=== PATIENT | male | born 1970 | race Caucasian/White ===

== ENCOUNTER 2022-12-19 11:00 | Emergency (ER) | payer OTHER ==
[~2022-12-19] VITALS: Ht 190.5 cm; Wt 136.1 kg
[2022-12-19 11:02] VITALS: BP 154/81
[2022-12-19] MEDS ORDERED: IPRATROPIUM/ALBUTEROL SULFATE 3 ML SOLUTION IH PRN (11:30)
[2022-12-19] MEDS ORDERED: 0.9%NACL 1000ML 1,000 ML IV ONE ×4 (11:30→13:38)
[2022-12-19 12:03] LABS: BASOPHILS % (AUTO) 0.4 % (0.0-5.0); EOSINOPHILS % (AUTO) 0.1 % (0.0-8.0); HEMATOCRIT 47.7 % (42-54); MEAN CORPUSCULAR HEMOGLOBIN 31.2 pg (27.0-33.0); MEAN CORPUSCULAR HGB CONC 34.2 g/dL (32.0-36.0); MEAN CORPUSCULAR VOLUME 91.2 fL (79-99); MONOCYTES % (AUTO) 5.5 % (3.0-13.0); NEUTROPHILS % (AUTO) 81.7 % (40.0-77.0); PLATELET COUNT (AUTO) 238 K/uL (130-400); RED BLOOD CELL COUNT(AUTO) 5.23 MIL/uL (4.50-6.20); RED CELL DISTRIBUTION WIDTH 12.5 % (11.0-15.5); WHITE BLOOD COUNT (AUTO) 11.8 K/uL (4.8-10.8)
[2022-12-19 12:12] LABS: POTASSIUM 4.1 mmol/L (3.5-5.1)
[2022-12-19 12:16] LABS: ALBUMIN 3.7 g/dL (3.5-5.0); TOTAL PROTEIN, SERUM 7.9 g/dL (6.0-8.3)
[2022-12-19] MEDS ORDERED: IPRATROPIUM/ALBUTEROL SULFATE 3 ML SOLUTION IH ONE (12:30)
[2022-12-19] MEDS ORDERED: CEFTRIAXONE 1G VIAL IVP ONE (13:30)
[2022-12-19] MEDS ORDERED: CEFTRIAXONE 1G VIAL ONE (13:38)
[2022-12-19] MEDS ORDERED: AZIT250T PO (13:38)
== END 2022-12-19 14:45 | disposition home or self-care (01) ==
LOC: EDH 11:00
DX: J18.9 Pneumonia, unspecified organism (principal); I10 Essential (primary) hypertension; Z20.822 Contact with and (suspected) exposure to COVID-19; Z91.040 Latex allergy status; Z98.890 Other specified postprocedural states
CPT/HCPCS: 99285; 96374; 71045; 87635; 96361; 84484; 80053; 83880; 85025; 87804 ×2; 83605; 36415; 93005; 94640; C9803; J7030 ×2; J0696

== ENCOUNTER 2023-04-12 00:15 | Inpatient (IN) | payer OTHER ==
[~2023-04-12] VITALS: Ht 190.5 cm; Wt 143.3 kg
[2023-04-12] VITALS (51 sets, daily range): BP systolic 100–169; BP diastolic 44–101
[~2023-04-12 00:15] MED LIST: AZIT250T PO
[2023-04-12 00:38] LABS: BASOPHILS % (AUTO) 0.4 % (0.0-5.0); EOSINOPHILS % (AUTO) 3.8 % (0.0-8.0); HEMATOCRIT 47.2 % (42-54); MEAN CORPUSCULAR HEMOGLOBIN 31.2 pg (27.0-33.0); MEAN CORPUSCULAR HGB CONC 33.3 g/dL (32.0-36.0); MEAN CORPUSCULAR VOLUME 93.8 fL (79-99); MONOCYTES % (AUTO) 10.4 % (3.0-13.0); NEUTROPHILS % (AUTO) 52.1 % (40.0-77.0); PLATELET COUNT (AUTO) 166 K/uL (130-400); RED BLOOD CELL COUNT(AUTO) 5.03 MIL/uL (4.50-6.20); WHITE BLOOD COUNT (AUTO) 7.8 K/uL (4.8-10.8)
[2023-04-12 00:50] LABS: INR 0.97 (0.85-1.15); PROTHROMBIN TIME 11.3 SEC (9.6-11.6)
[2023-04-12] MEDS ORDERED: ALTEPLASE 100MG 1 VIAL IVP STA (00:50)
[2023-04-12 00:52] LABS: PARTIAL THROMBOPLASTIN TIME 27.5 SEC (26.3-35.5)
[2023-04-12 00:56] LABS: ALBUMIN 3.7 g/dL (3.5-5.0); TOTAL PROTEIN, SERUM 7.5 g/dL (6.0-8.3)
[2023-04-12 01:01] LABS: POTASSIUM 4.7 mmol/L (3.5-5.1)
[2023-04-12 01:06] LABS: B-TYPE NATRIURETIC PEPTIDE 12 pg/mL (0-100)
[2023-04-12 01:24] LABS: CHOLESTEROL 191 mg/dL (<200); HDL CHOLESTEROL 38 mg/dL (29-71); LDL DIRECT 109 mg/dL (0-99); TRIGLYCERIDES 336 mg/dL (30-200)
[2023-04-12] MEDS ORDERED: ACETAMINOPHEN 325 MG TAB PO PRN (01:30)
[2023-04-12] MEDS ORDERED: ONDANSETRON 4MG INJ IV PRN (01:30)
[2023-04-12] MEDS ORDERED: 0.9%NACL 1000ML 1,000 ML IV SCH (01:30)
[2023-04-12 01:32] LABS: HEMOGLOBIN A1C 6.2 % (4.0-6.0)
[2023-04-12] MEDS: 0.9%NACL 1000ML 1,000 ML IV SCH ×3 (02:26→16:54)
[2023-04-12] MEDS ORDERED: HYDRALAZINE 20MG/ML VIAL IV PRN (08:00)
[2023-04-12] MEDS ORDERED: LABETALOL 20MG VIAL IV PRN (08:00)
[2023-04-12] MEDS: FAMOTIDINE 20MG VIAL IV SCH ×2 (08:20→20:11)
[2023-04-12 08:49] LABS: POTASSIUM 3.9 mmol/L (3.5-5.1)
[2023-04-12 11:30] LABS: AMPHET/METH SCREEN,URINE NEGATIVE (NEGATIVE); BARBITURATE SCREEN, URINE NEGATIVE (NEGATIVE); BENZODIAZEPINES SCREEN,URINE NEGATIVE (NEGATIVE); CANNABINOID SCREEN,URINE POSITIVE (NEGATIVE); COCAINE SCREEN,URINE NEGATIVE (NEGATIVE); OPIATE SCREEN,URINE NEGATIVE (NEGATIVE); PHENCYCLIDINE SCREEN,URINE NEGATIVE (NEGATIVE)
[2023-04-12 12:19] LABS: APPEARANCE,URINE CLEAR (CLEAR); BILIRUBIN,URINE NEGATIVE (NEGATIVE); COLOR,URINE LIGHT-YELLOW (YELLOW); GLUCOSE, URINE (UA) NEGATIVE (NEGATIVE); KETONES,URINE NEGATIVE (NEGATIVE); LEUKOCYTE ESTERASE ,URINE NEGATIVE Leu/uL (NEGATIVE); NITRATE,URINE NEGATIVE (NEGATIVE); OCCULT BLOOD,URINE NEGATIVE (NEGATIVE); PH,URINE 7.5 (5.0-8.0); PROTEIN,URINE NEGATIVE (NEGATIVE); UROBILINOGEN,URINE 0.2 mg/dL (0.2-1.0)
[2023-04-12 12:21] LABS: RBC,URINE 0-1 /HPF (0-1); WBC,URINE 0-1 /HPF (0-1)
[2023-04-12] MEDS ORDERED: LORAZEPAM 2 MG/ML 1 ML VIAL IM STA (13:03)
[2023-04-12] MEDS ORDERED: LORAZEPAM 2 MG/ML 1 ML VIAL IVP STA (13:27)
[2023-04-12] MEDS: VALACYCLOVIR HCL 500 MG TABLET PO SCH ×2 (14:37→20:11)
[2023-04-12] MEDS ORDERED: ATORVASTATIN 40 MG TABLET PO SCH (21:00)
[2023-04-13] VITALS (20 sets, daily range): BP systolic 104–166; BP diastolic 53–97
[2023-04-13] MEDS: ACETAMINOPHEN 325 MG TAB PO PRN ×2 (02:17→06:26)
[2023-04-13 04:18] LABS: BASOPHILS % (AUTO) 0.4 % (0.0-5.0); EOSINOPHILS % (AUTO) 3.2 % (0.0-8.0); HEMATOCRIT 47.8 % (42-54); LYMPHOCYTES % (AUTO) 26.4 % (21.0-51.0); MEAN CORPUSCULAR HEMOGLOBIN 31.2 pg (27.0-33.0); MEAN CORPUSCULAR HGB CONC 33.1 g/dL (32.0-36.0); MEAN CORPUSCULAR VOLUME 94.5 fL (79-99); MONOCYTES % (AUTO) 9.5 % (3.0-13.0); NEUTROPHILS % (AUTO) 60.4 % (40.0-77.0); PLATELET COUNT (AUTO) 159 K/uL (130-400); RED BLOOD CELL COUNT(AUTO) 5.06 MIL/uL (4.50-6.20); RED CELL DISTRIBUTION WIDTH 12.7 % (11.0-15.5); WHITE BLOOD COUNT (AUTO) 6.9 K/uL (4.8-10.8)
[2023-04-13] MEDS: 0.9%NACL 1000ML 1,000 ML IV SCH (05:23)
[2023-04-13 05:27] LABS: ALBUMIN 3.4 g/dL (3.5-5.0); CREATININE 0.9 mg/dL (0.5-1.5); MAGNESIUM 1.9 mg/dL (1.80-2.40); POTASSIUM 3.9 mmol/L (3.5-5.1)
[2023-04-13] MEDS: FAMOTIDINE 20MG VIAL IV SCH (08:43)
[2023-04-13] MEDS: VALACYCLOVIR HCL 500 MG TABLET PO SCH ×2 (08:45→14:10)
[2023-04-13] MEDS ORDERED: FENOFIBRATE NANOCRYSTALLIZED 145 MG TAB PO SCH (09:00)
[2023-04-13] MEDS ORDERED: PREDNISONE 20 MG TABLET PO ONE (09:00)
[2023-04-13] MEDS ORDERED: FISH OIL 1000 MG/CAP PO SCH (09:00)
[2023-04-13] MEDS ORDERED: MAGNESIUM 2GM PREMIX 50ML 50 ML IV PRN (13:00)
== END 2023-04-13 16:50 | disposition home or self-care (01) | DRG 74 ==
LOC: EDH 00:15 → EDHIP 01:08 → 2CH 03:23 → 2DH 04-13 11:37
PROVIDERS: ADMIT Internal Medicine; ATTEND Internal Medicine
PROC: 3E03317 Introduction of Other Thrombolytic into Peripheral Vein, Percutaneous Approach (ICD-10-PCS; principal; 2023-04-12)
PROC: 5A09357 Assistance with Respiratory Ventilation, Less than 24 Consecutive Hours, Continuous Positive Airway Pressure (ICD-10-PCS; 2023-04-12)
PROC: 5A09357 Assistance with Respiratory Ventilation, Less than 24 Consecutive Hours, Continuous Positive Airway Pressure (ICD-10-PCS; 2023-04-13)
DX: G51.0 Bell's palsy (principal); E78.2 Mixed hyperlipidemia; I10 Essential (primary) hypertension; E66.01 Morbid (severe) obesity due to excess calories; G47.33 Obstructive sleep apnea (adult) (pediatric); E78.1 Pure hyperglyceridemia; Z91.199 Patient's noncompliance with other medical treatment and regimen due to unspecified reason; Z68.39 Body mass index [BMI] 39.0-39.9, adult
CPT/HCPCS: 36415; 70450; 70551; 71045; 80048; 80053; 80061; 80305; 81001; 82550; 82948; 83036; 83605; 83735; 83874; 83880; 84484; 85025; 85384; 85610; 85730; 86850; 86900; 86901; 92522; 92610; 93005; 93306; 93356; 93880; 94660; G0378; J0360; J2060; J2997; J3475; J3490

== ENCOUNTER 2023-04-16 00:49 | Emergency (ER) | payer OTHER ==
[2023-04-16 01:56] VITALS: BP 156/79
== END 2023-04-16 01:58 | disposition home or self-care (01) ==
LOC: EDH 00:49
DX: G51.0 Bell's palsy (principal); H57.12 Ocular pain, left eye; F17.200 Nicotine dependence, unspecified, uncomplicated; I10 Essential (primary) hypertension
CPT/HCPCS: 93005

== ENCOUNTER 2023-07-14 09:50 | Day surgery (SDC) | payer OTHER ==
[2023-07-10 15:00] VITALS: BP 131/87; PULSE 83; RESP 14
[2023-07-10 15:00] LABS: BASOPHILS # (AUTO) 0.04 K/uL (0.00-0.20); BASOPHILS % (AUTO) 0.5 % (0.0-5.0); EOSINOPHILS # (AUTO) 0.23 K/uL (0.00-0.70); EOSINOPHILS % (AUTO) 3.1 % (0.0-8.0); HEMATOCRIT 45.9 % (42-54); IMMATURE GRANULOCYTE ABSOLUTE 0.01 K/uL (0-1); LYMPHOCYTES # (AUTO) 2.6 K/uL (1.0-4.8); LYMPHOCYTES % (AUTO) 35.4 % (21.0-51.0); MEAN CORPUSCULAR HEMOGLOBIN 31.2 pg (27.0-33.0); MEAN CORPUSCULAR HGB CONC 34.2 g/dL (32.0-36.0); MEAN CORPUSCULAR VOLUME 91.3 fL (79-99); MONOCYTES # (AUTO) 0.9 K/uL (0.1-1.0); MONOCYTES % (AUTO) 11.8 % (3.0-13.0); NEUTROPHILS # (AUTO) 3.6 K/uL (1.8-7.7); NEUTROPHILS % (AUTO) 49.1 % (40.0-77.0); PLATELET COUNT (AUTO) 220 K/uL (130-400); RED BLOOD CELL COUNT(AUTO) 5.03 MIL/uL (4.50-6.20); RED CELL DISTRIBUTION WIDTH 12.6 % (11.0-15.5); WHITE BLOOD COUNT (AUTO) 7.4 K/uL (4.8-10.8)
[2023-07-10 15:01] LABS: APPEARANCE,URINE CLEAR (CLEAR); BILIRUBIN,URINE NEGATIVE (NEGATIVE); COLOR,URINE YELLOW (YELLOW); GLUCOSE, URINE (UA) NEGATIVE (NEGATIVE); KETONES,URINE NEGATIVE (NEGATIVE); LEUKOCYTE ESTERASE ,URINE NEGATIVE Leu/uL (NEGATIVE); NITRATE,URINE NEGATIVE (NEGATIVE); OCCULT BLOOD,URINE NEGATIVE (NEGATIVE); PROTEIN,URINE 10 mg/dL (NEGATIVE); UROBILINOGEN,URINE 0.2 mg/dL (0.2-1.0)
[2023-07-10 15:03] LABS: ADD UA MICROSCOPIC YES
[2023-07-10 15:05] LABS: BACTERIA,URINE RARE /HPF (None Seen); MUCUS,URINE MOD LPF (None Seen); RBC,URINE 0-1 /HPF (0-1); WBC,URINE 0-1 /HPF (0-1)
[2023-07-10 15:13] LABS: POTASSIUM 3.7 mmol/L (3.5-5.1)
[2023-07-10 15:15] LABS: INR 0.99 (0.85-1.15); PROTHROMBIN TIME 11.5 SEC (9.6-11.6)
[2023-07-10 15:17] LABS: PARTIAL THROMBOPLASTIN TIME 30.1 SEC (26.3-35.5)
[2023-07-10 15:35] LABS: B-TYPE NATRIURETIC PEPTIDE 11 pg/mL (0-100)
[~2023-07-14] VITALS: Ht 190.5 cm; Wt 145.9 kg
[2023-07-14] VITALS (8 sets, daily range): BP systolic 109–139; BP diastolic 72–93; PULSE 51–77; RESP 12–18
[~2023-07-14 09:50] MED LIST changes: -AZIT250T PO; +BUTA1CAP53 PO; +GABA-529 PO; +LOSA50TA64 PO; +RIZA5TAB17 PO; +ROSU20TA73 PO; +TOPI25TA48 PO
[2023-07-14] MEDS ORDERED: 0.9%NACL 1000ML 1,000 ML IV ONE (10:24)
[2023-07-14] MEDS ORDERED: IOHEXOL 350 MG/ML 100ML INFUS..BTL IV ONE (11:31)
[2023-07-14] MEDS ORDERED: HEPARIN 10,000 UNIT/10ML (1,000 UNIT/ML) VIAL ONE (11:31)
[2023-07-14] MEDS ORDERED: IOHEXOL-350 50ML VIAL IV ONE ×2 (11:31→12:16)
[2023-07-14] MEDS ORDERED: SODIUM BICARB 50MEQ 50ML VIAL 50 ML ONE (11:31)
[2023-07-14] MEDS ORDERED: LIDOCAINE HCL 400MG/20ML VIAL ONE (11:31)
[2023-07-14] MEDS ORDERED: MIDAZOLAM HCL 1 MG/ML 2ML VIAL ONE ×2 (11:33→12:08)
[2023-07-14] MEDS ORDERED: FENTANYL CITRATE PF 50 MCG/1 ML 2ML VIAL ONE ×2 (11:33→12:07)
[2023-07-14] MEDS ORDERED: BIVALIRUDIN 250 MG/VIAL IV ONE (11:35)
[2023-07-14] MEDS ORDERED: IOHEXOL-350 75 ML VIAL IV ONE (12:13)
[2023-07-14] MEDS ORDERED: 0.9%NACL 1000ML 1,000 ML IV SCH (13:00)
== END 2023-07-14 17:02 | disposition home or self-care (01) ==
LOC: DAH 09:50 → EDSTATUS 13:00 → DAH 17:02
PROVIDERS: ATTEND Internal Medicine Cardiovascular Disease
DX: I25.119 Atherosclerotic heart disease of native coronary artery with unspecified angina pectoris (principal); I10 Essential (primary) hypertension; G47.33 Obstructive sleep apnea (adult) (pediatric); Z79.01 Long term (current) use of anticoagulants; Z79.899 Other long term (current) drug therapy
CPT/HCPCS: 80048; 83880; 85025; 85610; 85730; 81001; 36415; 71045; 93005; 93458; C1894 ×2; C1760; J3010 ×2; J3490 ×2; J7030; J2250; J1644; Q9967 ×2; A4215; A4222; A4221; A4663; A4216; A4606; Q9965; A4223 ×3; 96360; 96361; 99156; 99157; J0583